=== PATIENT | female | born 1970 | race Asian ===

== ENCOUNTER 2016-08-12 13:27 | Emergency (ER) | payer MEDICAID, OTHER ==
[~2016-08-12] VITALS: Ht 172.7 cm; Wt 99.8 kg
[~2016-08-12 13:27] MED LIST: CIPROFLOXACIN500 M1 PO; COLACE100 MG PO; FERROUS SULFAT325 MG PO; KEFLEX250 MG PO; METFORMIN HCL500 MG PO; NORCO 325 MG-51 TAB PO; SIMVASTATIN20 MG PO; TYLENOL #3 300/1 TAB PO; TYLENOL325 M2 PO
[2016-08-12 13:50] VITALS: BP 144/80
--- NOTE | 2016-08-12 13:51 | NUR ---
PATIENT PRESENTS TO ED DUE TO ON OFF SMALL AMOUNT OF BLOOD IN HER URINE STARTED THURSDAY,DENIES N/V/D; SKIN IS PINK/WARM/DRY; AAOX4 WITH EVEN AND STEADY GAIT; LUNGS CLEAR BL; HR EVEN AND REGULAR; PT DENIES ANY FEVER, CP, SOB, OR COUGH AT THIS TIME; PATIENT STATES PAIN OF 0/10 AT THIS TIME; PATIENT POSITIONED FOR COMFORT; HOB ELEVATED; BEDRAILS UP X2; BED DOWN. ER MD MADE AWARE OF PT STATUS.
--- NOTE | 2016-08-12 13:53 | NUR ---
PT TO BED 2 AT TIME.
--- NOTE | 2016-08-12 14:03 | NUR ---
DR. CARLISLE AT BEDSIDE AND AWARE OF THE RESULT OF URINE DIPSTICK AND PREG.
[2016-08-12 14:25] VITALS: BP 144/80
--- NOTE | 2016-08-12 14:26 | NUR ---
Patient discharged with v/s stable. Written and verbal after care instructions given and explained. Patient alert, oriented and verbalized understanding of instructions. Ambulatory with steady gait. All questions addressed prior to discharge. ID band removed. Patient advised to follow up with PMD. Rx of CEPHALEXIN given. Patient educated on indication of medication including possible reaction and side effects. Opportunity to ask questions provided and answered.ENCOURAGED FLUID INTAKE AND PT AGREED WITH IT.
== END 2016-08-12 14:26 | disposition home or self-care (01) ==
LOC: MED 13:27
DX: N39.0 Urinary tract infection, site not specified (principal); E11.9 Type 2 diabetes mellitus without complications; I10 Essential (primary) hypertension; E78.5 Hyperlipidemia, unspecified; Z90.710 Acquired absence of both cervix and uterus; Z79.899 Other long term (current) drug therapy

== ENCOUNTER 2020-08-07 22:47 | Emergency (ER) | payer OTHER ==
[~2020-08-07] VITALS: Ht 172.7 cm; Wt 99.8 kg
[~2020-08-07 22:47] MED LIST changes: +CIPR500T9 PO; -CIPROFLOXACIN500 M1 PO; -COLACE100 MG PO; +DOCU-300 PO; -FERROUS SULFAT325 MG PO; +HYDR-5122 PO; -KEFLEX250 MG PO; +METF-988 PO; -METFORMIN HCL500 MG PO; -NORCO 325 MG-51 TAB PO; +SIMV-31 PO; -SIMVASTATIN20 MG PO; -TYLENOL #3 300/1 TAB PO; -TYLENOL325 M2 PO
[2020-08-07 22:53] VITALS: BP 160/100
[2020-08-07] MEDS ORDERED: MORPHINE SULFATE 4 MG/ML SYR IM ONE (23:15)
[2020-08-07] MEDS ORDERED: SILVER SULFADIAZINE 1% 50 GM JAR TP ONE (23:15)
[2020-08-08] MEDS ORDERED: SILV-55 TP (00:05)
[2020-08-08] MEDS ORDERED: ACET-8386 PO (00:05)
[2020-08-08] MEDS ORDERED: IBUP-2213 PO (00:05)
[2020-08-08 01:05] VITALS: BP 144/98
== END 2020-08-08 01:05 | disposition home or self-care (01) ==
LOC: MED 22:47
DX: T24.201A Burn of second degree of unspecified site of right lower limb, except ankle and foot, initial encounter (principal); T24.202A Burn of second degree of unspecified site of left lower limb, except ankle and foot, initial encounter; T31.0 Burns involving less than 10% of body surface; E11.9 Type 2 diabetes mellitus without complications; Z79.84 Long term (current) use of oral hypoglycemic drugs; Z79.899 Other long term (current) drug therapy; Z90.710 Acquired absence of both cervix and uterus; X08.8XXA Exposure to other specified smoke, fire and flames, initial encounter; Y93.89 Activity, other specified; Y92.89 Other specified places as the place of occurrence of the external cause; Y99.8 Other external cause status
CPT/HCPCS: 96372; 99283; J2270; 90715

== ENCOUNTER 2020-10-11 22:04 | Inpatient (IN) | payer OTHER, SELFPAY ==
[~2020-10-11] VITALS: Ht 170.2 cm; Wt 99.8 kg
[~2020-10-11 22:04] MED LIST changes: +ACET-8386 PO; +IBUP-2213 PO; +SILV-55 TP
[2020-10-11 22:10] VITALS: BP 141/83
--- NOTE | 2020-10-11 22:17 | NUR ---
PT AMBULATED TO BED 09.
--- NOTE | 2020-10-11 22:21 | NUR ---
50/BIB SELF C/O VAGINAL BLEEDING SINCE YESTERDAY. PT SAID IT HAPPENED ABOUT 3 TIMES ALREADY. PT DENIES ANY PAIN, N/V/D. URINATION IS NORMAL. PMH: HTN, DM NKA
--- NOTE | 2020-10-11 23:17 | NUR ---
DR. BUTLER AT BEDSIDE EXAMINING PATIENT
[2020-10-11] MEDS ORDERED: ACETAMINOPHEN EXTRA STRENGTH 500 MG TAB ONE (23:45)
--- NOTE | 2020-10-11 23:50 | NUR ---
observed pt increased HR to 150s. Dr. Hartman made aware. EKG immediately initiated. IV site started. Observed increase in oral temperate from triage to now at 104.2. pt given 1g tylenol. pt positioned for comfort in high fowlers position. bed lowest and locked. rails x 2. connected on panel monitor.
[2020-10-11] MEDS ORDERED: PIPERACILLIN/TAZOBACTAM 3.375 GM in DEXTROSE 5% 50 ML IV ONE (23:55)
[2020-10-11] MEDS ORDERED: NACL 0.9% 1,000 ML IV ONE (23:55)
[2020-10-11] MEDS ORDERED: NACL 0.9% 2,000 ML IV ONE (23:55)
[2020-10-11] MEDS ORDERED: ACETAMINOPHEN 325 MG TAB PO ONE (23:55)
[2020-10-12] VITALS (15 sets, daily range): BP systolic 96–145; BP diastolic 56–108
[2020-10-12] MEDS ORDERED: METOPROLOL 5 MG/5 ML VIAL IVP ONE (00:20)
[2020-10-12] MEDS ORDERED: PIPERACILLIN/TAZOBACTAM 3.375 GM VIAL IV ONE (00:24)
[2020-10-12 00:25] LABS: APPEARANCE,URINE HAZY (CLEAR); BILIRUBIN,URINE NEGATIVE (NEGATIVE); BLOOD, URINE 3+ (NEGATIVE); COLOR,URINE RED (YELLOW); LEUKOCYTE ESTERASE ,URINE 1+ (NEGATIVE); NITRITE, URINE POSITIVE (NEGATIVE); UGLUCOSE 2+ (NEGATIVE)
[2020-10-12 00:28] LABS: RBC,URINE TOO NUMEROUS TO COUN /HPF (0-5)
[2020-10-12 00:34] LABS: ALBUMIN 2.4 g/dL (3.4-5.0); ANION GAP 26.5 (8-16); BASOPHILS % (AUTO) 0.2 % (0.0-2.0); CARBON DIOXIDE 13.3 mmol/L (21-32); CREATININE 3.1 mg/dL (0.6-1.3); EOSINOPHILS % (AUTO) 0.2 % (0.0-4.0); HEMATOCRIT 45.8 % (36-48); LYMPHOCYTES % (AUTO) 9.8 % (20.5-51.1); MEAN CORPUSCULAR HEMOGLOBIN 28 pg (27-31); MEAN CORPUSCULAR HGB CONC 33 g/dL (33-37); MEAN CORPUSCULAR VOLUME 84.3 fL (80-94); MONOCYTES # (AUTO) 0.1 K/uL (0.8-1.0); MONOCYTES % (AUTO) 1.2 % (1.7-9.3); NEUTROPHILS # (AUTO) 9.3 K/uL (1.8-7.7); NEUTROPHILS % (AUTO) 88.6 % (42.2-75.2); PLATELET COUNT (AUTO) 70 K/uL (140-450); POTASSIUM 4.8 mmol/L (3.5-5.1); RED BLOOD CELL COUNT(AUTO) 5.43 MIL/uL (4.20-5.40); RED CELL DISTRIBUTION WIDTH 13.9 % (11.6-13.7); TOTAL BILIRUBIN 1.4 mg/dL (0.0-1.0); WHITE BLOOD COUNT (AUTO) 10.5 K/uL (4.8-10.8)
--- NOTE | 2020-10-12 00:36 | NUR ---
US AT BEDSIDE.
[2020-10-12] MEDS ORDERED: METF500T PO (00:40)
[2020-10-12 00:53] LABS: BARBITURATE, URINE NEGATIVE ng/ml (NEG <=200); BENZODIAZEPINE, URINE NEGATIVE ng/mL (NEG <=200); CANNABINOID, URINE NEGATIVE ng/mL (NEG <=50); COCAINE, URINE NEGATIVE ng/mL (NEG <=300); OPIATE, URINE NEGATIVE ng/mL (NEG <=2000); PHENCYCLIDINE SCREEN,URINE NEGATIVE ng/mL (NEG <=25)
[2020-10-12 00:53] LABS: PROTHROMBIN TIME 13.2 secs (10.8-13.4)
--- NOTE | 2020-10-12 01:12 | NUR ---
PT TAKEN TO CT VIA ANJANA. NARDA ACCOMPANYING COMMANDER POLICE RESERVES.
[2020-10-12] MEDS ORDERED: INSULIN REGULAR, HUMAN 100 UNIT in NACL 0.9% 100 ML IV ONE ×2 (01:20)
[2020-10-12] MEDS ORDERED: NACL 0.9% 2,000 ML IV ONE (01:20)
[2020-10-12] MEDS ORDERED: INSULIN REGULAR, HUMAN 100 UNIT/ML VIAL SUBQ ONE (01:20)
--- NOTE | 2020-10-12 01:35 | NUR ---
RT AT BEDSIDE, ABG COLLECTED.
--- NOTE | 2020-10-12 01:52 | NUR ---
BARTOLO COLLECTED, RESULTS WERE GIVEN TO DR. THOMAS
[2020-10-12] MEDS ORDERED: INSULIN REGULAR, HUMAN 100 UNIT/ML VIAL IVP ONE (01:55)
[2020-10-12] MEDS ORDERED: INSULIN REGULAR, HUMAN 100 UNIT in NACL 0.9% 100 ML IV SCH ×2 (01:55)
[2020-10-12] MEDS: NACL 0.9% 1,000 ML IV SCH ×5 (02:10→19:35)
[2020-10-12] MEDS ORDERED: MAG SULF 2000 MG/WATER PREMIX 50 ML IV PRN (02:10)
[2020-10-12] MEDS ORDERED: POTASSIUM CHLORIDE 10 MEQ TABER PO PRN (02:10)
[2020-10-12] MEDS ORDERED: MAGNESIUM OXIDE 400 MG TAB PO PRN (02:10)
[2020-10-12] MEDS ORDERED: DEXTROSE 50% 50 ML SYR IVP PRN (02:10)
[2020-10-12] MEDS ORDERED: KCL 20 MEQ/WATER INJ PREMIX 200 ML IV PRN (02:10)
[2020-10-12] MEDS ORDERED: ONDANSETRON 4 MG/2 ML VIAL IVP PRN ×2 (02:10→02:20)
[2020-10-12] MEDS ORDERED: HYDROcodone/APAP 5/325 MG 1 TAB TAB PO PRN (02:10)
[2020-10-12] MEDS ORDERED: INSULIN LISPRO SLIDING SCALE 100 UNITS/ML VIAL SUBQ PRN (02:10)
[2020-10-12] MEDS: BLOOD GLUCOSE MONITORING 1 DEV DEV FS SCH ×22 (02:14→23:10)
[2020-10-12] MEDS: INSULIN REGULAR, HUMAN 100 UNIT in NACL 0.9% 100 ML IV SCH ×6 (02:15→14:51)
[2020-10-12] MEDS ORDERED: NOREPINEPHRINE 4 MG in DEXTROSE 5% 250 ML IV ONE (02:25)
[2020-10-12] MEDS ORDERED: ALBUMIN HUMAN 5 % 500 ML IV SCH (02:40)
[2020-10-12] MEDS ORDERED: cefTRIAXone 1,000 MG VIAL ONE (03:15)
--- NOTE | 2020-10-12 03:27 | NUR ---
performed urinary straight catheter with 16 fr catheter via the sterile procedure. output of blood tinged urine. pt tolerated well.
--- NOTE | 2020-10-12 03:33 | NUR ---
UNABLE TO ADMINISTER LEVOPHED DRIP OF THIS MOMENT, AWAITING MD TO PUT CENTRAL LINE. CURRENT BP 90/42 HR 114. WILL CONTINUE TO MONITOR.
[2020-10-12] MEDS ORDERED: BLOOD GLUCOSE MONITORING 1 DEV DEV FS SCH (04:00)
[2020-10-12 04:05] LABS: BASOPHILS % (AUTO) 0.2 % (0.0-2.0); EOSINOPHILS % (AUTO) 0.1 % (0.0-4.0); HEMATOCRIT 39.9 % (36-48); HEMOGLOBIN 12.9 g/dL (12.0-16.0); LYMPHOCYTES % (AUTO) 6.5 % (20.5-51.1); MEAN CORPUSCULAR HEMOGLOBIN 27 pg (27-31); MEAN CORPUSCULAR HGB CONC 32 g/dL (33-37); MEAN CORPUSCULAR VOLUME 83.1 fL (80-94); MONOCYTES # (AUTO) 0.7 K/uL (0.8-1.0); MONOCYTES % (AUTO) 4.4 % (1.7-9.3); NEUTROPHILS % (AUTO) 88.8 % (42.2-75.2); PLATELET COUNT (AUTO) 49 K/uL (140-450); RED CELL DISTRIBUTION WIDTH 13.8 % (11.6-13.7); WHITE BLOOD COUNT (AUTO) 15.7 K/uL (4.8-10.8)
--- NOTE | 2020-10-12 04:16 | NUR ---
PT RESTING COMFORTABLY. HOB ELEVATED, O2 2LPM/NC IN PLACE, NO S/SX OF DISTRESS NOTED. IVF AND INSULIN DRIP INFUSING WELL. GALLO CATHETER DRAINING BLOODY URINE. PT DENIES ANY PAIN OR DISCOMFORT AT THIS TIME, NO REQUESTS MADE. PT KEPT COMFORTABLE. SAFETY MEASURES IN PLACE, SIDE RAILS RAISED, BED IN LOW POSITION, BED LOCKED, CALL LIGHT WITHIN REACH. WILL CONTINUE TO MONITOR.
[2020-10-12 04:19] LABS: ANION GAP 20.8 (8-16); CREATININE 3.3 mg/dL (0.6-1.3); POTASSIUM 3.8 mmol/L (3.5-5.1)
[2020-10-12] MEDS ORDERED: NOREPINEPHRINE 4 MG/4 ML VIAL IV ONE (05:24)
--- NOTE | 2020-10-12 06:05 | NUR ---
ASSISTED DR. BUTLER WITH CENTRAL LINE INSERTION. AWAITING XRAY CONFIRMATION. WILL CONTINUE TO MONITOR.
[2020-10-12] MEDS: DEXT 5% / NACL 0.45% 1,000 ML IV SCH ×5 (06:49→19:35)
--- NOTE | 2020-10-12 07:20 | NUR ---
Patient will be admitted to care of DR. PARRA. Admited to ICU. Will go to BED #5. Belongings list completed. Report to FELICIANO LABOY
[2020-10-12] MEDS: ALBUTEROL SULFATE/IPRATROPIU 3 ML SOL IH SCH ×4 (07:42→23:19)
[2020-10-12 08:31] LABS: ANION GAP 21.4 (8-16); CARBON DIOXIDE 17.4 mmol/L (21-32); CREATININE 3.3 mg/dL (0.6-1.3); POTASSIUM 4.8 mmol/L (3.5-5.1)
[2020-10-12] MEDS: DOCUSATE SODIUM 100 MG GELCAP PO SCH (08:36)
--- NOTE | 2020-10-12 08:36 | NUR ---
ADMINISTERED SCHEDULED MEDS PER MD ORDER. MED EDUCATION PROVIDED, PATIENT VERBALIZES UNDERSTANDING.
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
--- NOTE | 2020-10-12 08:50 | NUR ---
PATIENT HAS BEEN SCREENED AND CATEGORIZED HIGH NUTRITION RISK. PATIENT WILL BE SEEN WITHIN 1-2 DAYS OF ADMISSION. 10/12/20-10/13/[address]
--- NOTE | 2020-10-12 10:21 | NUR ---
PATIENT ASSISTED WITH A LINEN CHANGE AND CLEAN UP FROM BM. HOME CARE COORDINATOR IN PLACE. SAFETY MEASURES IN PLACE.
[2020-10-12 12:34] LABS: ANION GAP 21.4 (8-16); CARBON DIOXIDE 16.8 mmol/L (21-32); CREATININE 3.3 mg/dL (0.6-1.3); POTASSIUM 4.2 mmol/L (3.5-5.1)
--- NOTE | 2020-10-12 12:53 | NUR ---
PER DR YO (RENAL MD), TITRATE BETWEEN NS AND D5 1/2NS TO 80 ML/HR OPPOSED TO FLUID STATE PER DKA PROTOCOL.
--- NOTE | 2020-10-12 13:14 | NUR ---
BLOOD CULTURE RESULTS CALLED IN BY LAB, DR PARRA PAGED. AWAITING NEW ORDERS.
[2020-10-12] MEDS: ACETAMINOPHEN 325 MG TAB PO PRN (13:44)
--- NOTE | 2020-10-12 13:44 | NUR ---
TYLENOL PRN ADMINISTERED FOR TEMPERATURE OF 100.4 DEGREES FAHRENHEIT. MED EDUCATION PROVIDED, PATIENT VERBALIZES UNDERSTANDING.
--- NOTE | 2020-10-12 14:49 | NUR ---
DC [age] YRS OLD FEMALE PATIENT WAS ADMITTED FROM HOME WITH A DX OF DKA. PATIENT HAS A HX OF DM, MORBID OBESITY AND HTN. CXR SHOWED NO ACUTE CARDIOPULMONARY DISEASE. PELVIC US NO ADNEXAL MASSES IDENTIFIED. CT HEAD NO INTRACRANIAL HEMORRHAGE, MASS EFFECT OR HYDROCEPHALUS. CT ABD/PELVIS SHOWED SEVERE EMPHYSEMATOUS LEFT PYELONEPHRITIS. RAPID COVID TEST NEGATIVE INFLUENZA A&B NEGATIVE. BLOOD GLUCOSE ON ADMISSION 498 AG 26.5. STARTED INSULIN DRIP , IVF IV ABX ROCEPHIN. CONSULTED WITH [facility] AND [facility]. DC PLAN TO GO HOME WHEN STABLE. CM TO FOLLOW Addendum: 10/15/20 at 1404 by Denia Argueta CM DC OPERATOR RECEPTIONIST: SCHEDULED PATIENT A FOLLOW UP APPOINTMENT WITH PCP [facility] [phone]. [phone] [address]. Thursday AT 9:00 AM Addendum: 10/16/20 at 1507 by Denia Argueta CM DC OPERATOR RECEPTIONIST: RECEIVED ORDER FOR SNF FOR IV ABX, FRANCI SPOKE TO PATIENT SHE IS AGREEABLE TO GOING TO SNF, PATIENT DOES NOT HAVE A PREFERENCE. FAXED TO [facility]. RECEIVED A PHONE CALL FROM CARROLL AT [facility] THEY ARE ABLE TO ACCEPT THIS PATIENT. Addendum: 10/16/20 at 1528 by Denia Argueta CM DC OPERATOR RECEPTIONIST: [facility] [address] [place] [address] ROOM# [id number] Addendum: 10/16/20 at 1530 by Denia Argueta CM DC OPERATOR RECEPTIONIST: PER DR. MEAD PATIENT WILL NEED A PIC LINE BEFORE DISCHARGING TO SNF. PLACED TRANSPORTATION ON WILL CALL WITH [facility] [phone]
[2020-10-12 18:01] LABS: POTASSIUM 4.7 mmol/L (3.5-5.1)
[2020-10-12 18:03] LABS: ANION GAP 19.5 (8-16); CARBON DIOXIDE 15.2 mmol/L (21-32)
[2020-10-12 18:04] LABS: CREATININE 3.1 mg/dL (0.6-1.3)
--- NOTE | 2020-10-12 19:31 | NUR ---
ENDORSED PATIENT TO BREAKER OFF NURSE FOR CONTINUITY OF CARE. PATIENT STABLE AT THIS TIME.
--- NOTE | 2020-10-12 19:47 | NUR ---
DUONEB TREATMENT NOT GIVEN DUE TO HIGH HEART RATE
--- NOTE | 2020-10-12 20:00 | NUR ---
PATIENT WAS ACCEPTED AND ASSESS DONE COLOR FAIR SKIM WARM AND DRY NOTICE PATIENT HAVING HI HEART RATE , NASQAL CANNULA AND AN INSULIN DRIP WITH BLOOD GLUCOSE Q 1 HR COUGHING ALOT CAUSING EYES TO BE RED AND WATERY,,HAS THREE IV SITE ,GALLO INTACT WITH HEMATURIA ABDOME GREATLY DISTENDED , SOFT ,PATIENT IS SELF TURN LIKE LAYING ON THE RIGHT SIDE , AMRIK PAIN WILL BECOME LABOR BREATHING WHEN TURNING SIDE TO SIDE WHEN BEING CLEAN HAS FEW LOOSE DARK GREEN STOOL HAS NO CONTROL BLOOD GLUCOSE Q 1R RANGE FROM 140-250 NO CHANGE ON THE INSULIN DRIPE MAY NEED TO STOP DRIP ,PATIENT IS ALSO ON AN DIET, THE UROLOGIST CAME TO SEE THE PATIENT AND EXPLAIN AN PROCEDURE WILL DO IN THE AM SOME TYPE OF STNT PLACEMENT RELATE TO THE KIDNEY ALSOMAY FIND OUT WHY THE PATIENT HAS HEMATURIA WILL SIGN CONSENT AND NPO AFTER MN,STABLE THE PATIENT RESTLESS WITH LABOR BREATHING ,PATIENT DID ASK FOR HER BREATHING PUFF,.STABLE
[2020-10-12] MEDS ORDERED: MEROPENEM 500 MG VIAL IV ONE (21:56)
--- NOTE | 2020-10-12 22:00 | NUR ---
PATIENT WAS GIVEN PHENERGAN/CODIENE 10MG PO FOR THE COUGH ,CALL THE RT AFKF CELESTE ANY TREATMENT ,PATIENT WAS GIVEN BREATHING TREATMENT ,THE HEART RATER WAS HI, BUT THE PATIENT NEED THE TREATMENT,STABLE USING THE BEDPAN AT INTERVAL,PASSING VERY SMALLLIQUID STOOL ,WILL CONTINUED WITH PLAN OF CARE.
[2020-10-12] MEDS: MEROPENEM 500 MG in NACL 0.9% 50 ML IV SCH (22:38)
[2020-10-12] MEDS: PROMETH/CODEINE 6.25-10MG/5ML 5 ML UDC PO PRN ×2 (22:53→23:13)
[2020-10-13] VITALS (18 sets, daily range): BP systolic 92–153; BP diastolic 48–89
[2020-10-13] MEDS: BLOOD GLUCOSE MONITORING 1 DEV DEV FS SCH ×13 (01:00→22:00)
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
--- NOTE | 2020-10-13 06:00 | NUR ---
NOTICE THE PATIENT BED WAS VERY WET FROM THE URINE MAY HAD BEEN 400 ML , SKIN CARE WAS GIVEN LINEN AND GOWN WERE CHANGE . STABLE PATIENT REMAIN NPO AFTER MN ORDER PATIENT TRIED TO REST DUE TOTHE BREATHING WAS UNABLE TO GET COMFORTABLE WILL CONTINUED WITH PLANA OF CARE,STABLE
[2020-10-13 06:18] LABS: CHOL/HDL RATIO 14.9 (1-4.5)
[2020-10-13 06:29] LABS: ALBUMIN 2.1 g/dL (3.4-5.0); ANION GAP 17.2 (8-16); CARBON DIOXIDE 18.9 mmol/L (21-32); CREATININE 2.8 mg/dL (0.6-1.3); POTASSIUM 4.1 mmol/L (3.5-5.1); TOTAL BILIRUBIN 0.5 mg/dL (0.0-1.0)
[2020-10-13 06:53] LABS: HEMATOCRIT 38.2 % (36-48); HEMOGLOBIN 12.6 g/dL (12.0-16.0); MEAN CORPUSCULAR HEMOGLOBIN 27 pg (27-31); MEAN CORPUSCULAR HGB CONC 33 g/dL (33-37); MEAN CORPUSCULAR VOLUME 82.9 fL (80-94); PLATELET COUNT (AUTO) 20 K/uL (140-450); RED BLOOD CELL COUNT(AUTO) 4.61 MIL/uL (4.20-5.40); RED CELL DISTRIBUTION WIDTH 13.8 % (11.6-13.7); WHITE BLOOD COUNT (AUTO) 8.4 K/uL (4.8-10.8)
--- NOTE | 2020-10-13 07:15 | NUR ---
RECEIVED REPORT FROM UNIVERSITY ARCHIVIST NURSE. PATIENT SUPINE IN BED WITH OR AND UNIVERSITY ARCHIVIST RN AT BEDSIDE, PREPARING FOR OR PROCEDURE. PATIENT ALERT AND AWAKE, ABLE TO MAKE NEEDS KNOWS, NO SIGNS OF ACUTE DISTRESS NOTED. NC @ 2 L, GALLO CATHETER IN PLACE, RIJ, LAC 18G, R HAND 20G. INFUSING INSULIN @ 0.05 UNITS/KG/HR, D5 1/2NS @ 80 ML/HR. PATIENT TAKEN TO OR BY OR STAFF.
[2020-10-13] MEDS ORDERED: fentaNYL citrate 0.05 MG/ML VIAL ONE (07:35)
[2020-10-13] MEDS ORDERED: MIDAZOLAM 2 MG/2 ML VIAL ONE (07:35)
[2020-10-13] MEDS ORDERED: PROPOFOL 200 MG/20 ML VIAL IV ONE (07:35)
[2020-10-13] MEDS ORDERED: SEVOFLURANE 250 ML BTL INH ONE (07:35)
[2020-10-13] MEDS: NACL 0.9% 1,000 ML IV SCH (08:05)
[2020-10-13] MEDS: DEXT 5% / NACL 0.45% 1,000 ML IV SCH (08:05)
[2020-10-13 08:06] LABS: EOSINOPHILS % (MANUAL) 2 % (0-4); LYMPHOCYTES % (MANUAL) 9 % (20-46); METAMYELOCYTES % 1 % (0-0); MONOCYTES % (MANUAL) 6 % (5-12)
--- NOTE | 2020-10-13 08:12 | NUR ---
PT MISSED MORNING BREATHING TX DUE TO GOING TO OR FIRST THING IN AM. WILL ATTEMPT TO GIVE PT TX AFTER PROCEDURE IN OR.
[2020-10-13] MEDS ORDERED: FLUCONAZOLE 200 MG/NS PREMIX 100 ML IV SCH (08:30)
--- NOTE | 2020-10-13 08:50 | NUR ---
PATIENT RETURNING FROM OR PROCEDURE, BROUGHT IN BED BY OR STAFF/RN. PATIENT DROWSY FROM SEDATION, AWAKES TO SHAKING, WITH SIMPLE MASK SATURATING IN THE 80S. PER LINING CEMENTER, NEW GALLO CATHETER PLACED IN OR. PER ANESTHESIA, FENTANYL ADMINISTERED DURING PROCEDURE. DR GOLDEN AT BEDSIDE, ASSESSING PATIENT.
[2020-10-13] MEDS: DOCUSATE SODIUM 100 MG GELCAP PO SCH (09:00)
[2020-10-13] MEDS: MEROPENEM 500 MG in NACL 0.9% 50 ML IV SCH ×2 (09:00→23:03)
--- NOTE | 2020-10-13 09:17 | NUR ---
RT AND DR GOLDEN AT BEDSIDE OBTAINING BLOOD GAS AND ASSESSING PATIENT.
--- NOTE | 2020-10-13 09:29 | NUR ---
10/13/20 RD INITIAL ASSESSMENT COMPLETED PLEASE REFER TO NUTRITION ASSESSMENT UNDER CARE ACTIVITY FOR ESTIMATED NUTRITIONAL NEEDS. 1. WHEN MEDICALLY APPROPRIATE RECOMMEND CCHO 60 GM, NA 2 GM DIET 2. RECOMMEND DIET EDUCATION FOR DM DIET 3. RD TO FOLLOW-UP 2-3 DAYS, HIGH RISK CAROL ANN MCCOLLUM RD
--- NOTE | 2020-10-13 09:32 | NUR ---
RT AT BEDSIDE PLACING PATIENT ON BIPAP. RATE 10, FIO2 45%, SPO2 97%. LABORED BREATHING WITH ACCESSORY MUSCLE USE.
[2020-10-13] MEDS: ALBUTEROL SULFATE/IPRATROPIU 3 ML SOL IH SCH ×3 (09:42→20:37)
[2020-10-13] MEDS: INSULIN REGULAR, HUMAN 100 UNIT in NACL 0.9% 100 ML IV SCH ×2 (12:17)
--- NOTE | 2020-10-13 12:49 | NUR ---
RT AT BEDSIDE, REMOVING PATIENT OFF BIPAP. PATIENT PLACED ON 2L NC, SPO2 97%.
--- NOTE | 2020-10-13 12:55 | NUR ---
pt pulled off bipap, was third time she had removed the mask, pt placed on nasal cannula-no distress noted
[2020-10-13] MEDS: ACETAMINOPHEN 325 MG TAB PO PRN (13:13)
--- NOTE | 2020-10-13 13:14 | NUR ---
PRN ACETAMINOPHEN ADMINISTERED FOR TEMPERATURE OF 100.6 DEGREES FAHRENHEIT. WILL MONITOR CLOSELY.
[2020-10-13] MEDS ORDERED: FUROSEMIDE 40 MG/4 ML VIAL IVP SCH (14:00)
--- NOTE | 2020-10-13 14:41 | NUR ---
ADMINISTERED ONE TIME DOSE OF FUROSEMIDE PER MD ORDER. MED EDUCATION PROVIDED, REINFORCEMENT NEEDED. LATEX CASTER IN PLACE, SAFETY MEASURES IN PLACE, CALL LIGHT WITHIN REACH.
--- NOTE | 2020-10-13 19:25 | NUR ---
ENDORSED PATIENT TO SWITCH HOUSE OPERATOR NURSE FOR CONTINUITY OF CARE. PATIENT STABLE AT THIS TIME.
--- NOTE | 2020-10-13 20:00 | NUR ---
PATIENT WAS ACCEPTED AND ASSESS DONE NOTICE PATIENT WAS ZULUAGA LETHARGIA AND CONFUSED ON NASAL CANNULA 2 LITER CHEST ESSENTIAL CLEAR SOME LABOR BREATHING OCCASIONAL WOULD REFUSED TO USED THE BIPAP HAS AN CLEAR LIQUID DIET WANT WATER ONLY NO FEVER WAA NOTICE ABDOMEN IS DISTENDED BUT SOFT PATIENT IS NOT MOVING MUCH TODAY STAY ON THE RIGHT SIDE ONLY HAS HER LEG HALF OUT OF THE BED PATIENT IS TO THREE TEST FOR ANION GAP THIS WILL DETERMING IF TO STOP THE INSULIN DRIP BLOOD GLUCOSE TAKEN Q TWO HR, RESULT 178-180 ANF STABLE PATIENT LAB LOW PLAT WILL RECEIVED PLAT TRANSFUSION TO NITE , STABLE PATIENT IS SLEEPING A LOT INTERVAL NOTICE EUES ARE RED AND WATERY , WILL CONTINUED WITH PLAN OF CARE
[2020-10-13 20:31] LABS: ANION GAP 17.3 (8-16); CARBON DIOXIDE 21.3 mmol/L (21-32); CREATININE 2.5 mg/dL (0.6-1.3); POTASSIUM 4.6 mmol/L (3.5-5.1)
[2020-10-14] VITALS (17 sets, daily range): BP systolic 89–148; BP diastolic 42–72
--- NOTE | 2020-10-14 | NUR ---
PATIENT CONDITION UN CHANGED SLEEPING AT LONG INTERVALS HAS THRE IV SITE SITE CLEAN WITH DRSG GHANGE RIGHT IJ WAS DONE L/C SIT DRSG CHANGE RIGHT HAND NO,20G HAD CAME OUT WILL NOT START ,HAS TWO OTHER SITE, STABLE
[2020-10-14 00:36] LABS: ANION GAP 14.8 (8-16); CARBON DIOXIDE 22.5 mmol/L (21-32); CREATININE 2.5 mg/dL (0.6-1.3); POTASSIUM 4.3 mmol/L (3.5-5.1)
[2020-10-14] MEDS: ALBUTEROL SULFATE/IPRATROPIU 3 ML SOL IH SCH ×4 (01:11→20:43)
--- NOTE | 2020-10-14 04:00 | NUR ---
PATIENT WAS GIVEN AM BATHTURN ON TO BACK NOTICE URINE VERY DARK BLOOD START FILLING UP THE URINE WITH 29 MIN , ALSO PATIENT HAD START OMDESAT WAS PLACE ON NON REBREATHER MASK AT 100% , RESP RATE WAS SLOW AND LABOR RT WAS CALL TO ASSESS THE PATIENT , WILL BE ON BIPAP STABLE CALL DR ANNE ABOUT THE PATIENT CONDITION ORDER MANY THING SEE ORDER SHEET , STABLE ANION GAP IS COMING DOWN 14.8 MAY POSSIBLE STOP INSULIN DRIP 5 UNITS OF PLATLET WAS GIVEN ANF TOLERATE NO REACTION TO THE TRANSFUSION WILL CONTINUED WITH PLAN OF CARE STABLE
--- NOTE | 2020-10-14 05:13 | NUR ---
CALLED TO BEDSIDE AND FOUND PT ON NRB. PT AGREED TO BIPAP AND WAS PLACED ON BIPAP W/ SETTINGS THAT WERE PREV SET BIPAP WAS ON STDBY AT BEDSIDE. PT IS NOW RESTING COMFORTABLY ON BIPAP 14/5 f10 30%. PT DESAT AND STATED SHE FELT SOB W/ SOME INCR WOB PRIOR TO BIPAP
[2020-10-14 05:21] LABS: HEMATOCRIT 34.6 % (36-48); HEMOGLOBIN 11.4 g/dL (12.0-16.0); MEAN CORPUSCULAR HEMOGLOBIN 28 pg (27-31); MEAN CORPUSCULAR HGB CONC 33 g/dL (33-37); PLATELET COUNT (AUTO) 36 K/uL (140-450); RED BLOOD CELL COUNT(AUTO) 4.11 MIL/uL (4.20-5.40); RED CELL DISTRIBUTION WIDTH 14.6 % (11.6-13.7); WHITE BLOOD COUNT (AUTO) 8.5 K/uL (4.8-10.8)
[2020-10-14 05:35] LABS: ANION GAP 15.7 (8-16); CARBON DIOXIDE 20.8 mmol/L (21-32); CREATININE 2.5 mg/dL (0.6-1.3); POTASSIUM 4.5 mmol/L (3.5-5.1)
[2020-10-14 05:48] LABS: ANION GAP 14.8 (8-16); CARBON DIOXIDE 21.7 mmol/L (21-32); CREATININE 2.5 mg/dL (0.6-1.3); POTASSIUM 4.5 mmol/L (3.5-5.1); TOTAL BILIRUBIN 0.6 mg/dL (0.0-1.0)
[2020-10-14 06:56] LABS: BASOPHILS % (MANUAL) 0 % (0-2); EOSINOPHILS % (MANUAL) 1 % (0-4); LYMPHOCYTES % (MANUAL) 9 % (20-46); MONOCYTES % (MANUAL) 4 % (5-12)
[2020-10-14] MEDS: BLOOD GLUCOSE MONITORING 1 DEV DEV FS SCH ×6 (07:00→20:52)
--- NOTE | 2020-10-14 07:40 | NUR ---
RECEIVED REPORT FROM DIRECTOR OF MARKETING ANALYTICS NURSE. PATIENT SUPINE IN BED, AWAKE AND ALERT, ABLE TO MAKE NEEDS KNOWN. NON REBREATHER FIO2 30%, IPAP 14, EPAP 5, RATE 10, NO SIGNS OF ACUTE DISTRESS NOTED. GALLO CATHETER IN PLACE, DRAINING TO GRAVITY. RIJ CENTRAL LINE, L AC 18G, INFUSING INSULIN @ 0.05 UNIT/KG/HR, D5 1/2 NS @ 50 ML/HR. DISTRIBUTION ENGINEER IN PLACE, SAFETY MEASURES IN PLACE.
[2020-10-14] MEDS: DOCUSATE SODIUM 100 MG GELCAP PO SCH (08:38)
[2020-10-14] MEDS: MEROPENEM 500 MG in NACL 0.9% 50 ML IV SCH ×2 (08:39→20:12)
--- NOTE | 2020-10-14 08:51 | NUR ---
ADMINISTERED SCHEDULED MEDS PER MD ORDER. MED EDUCATION PROVIDED, PATIENT VERBALIZES UNDERSTANDING. PATIENT TOLERATED WELL WITH SIPS OF WATER. RIGGER CHIEF IN PLACE, SAFETY MEASURES IN PLACE.
--- NOTE | 2020-10-14 09:45 | NUR ---
DR QUINTANILLA ROUNDING ON PATIENT AT BEDSIDE. PER DR QUINTANILLA, STOP INSULIN DRIP IF NEXT ANION GAP IS BELOW 18.
[2020-10-14] MEDS: NACL 0.9% 1,000 ML IV SCH ×2 (09:50→19:33)
[2020-10-14] MEDS: INSULIN LANTUS 100 UNITS/ML 10 ML VIAL SUBQ SCH ×2 (10:00→12:50)
[2020-10-14 12:35] LABS: ALBUMIN 1.8 g/dL (3.4-5.0); ANION GAP 15.1 (8-16); CARBON DIOXIDE 23.3 mmol/L (21-32); CREATININE 2.5 mg/dL (0.6-1.3); POTASSIUM 4.4 mmol/L (3.5-5.1); TOTAL BILIRUBIN 0.6 mg/dL (0.0-1.0)
[2020-10-14 16:41] LABS: ALBUMIN 1.8 g/dL (3.4-5.0); ANION GAP 14.1 (8-16); CARBON DIOXIDE 23.5 mmol/L (21-32); CREATININE 2.4 mg/dL (0.6-1.3); POTASSIUM 4.6 mmol/L (3.5-5.1); TOTAL BILIRUBIN 0.7 mg/dL (0.0-1.0)
[2020-10-14] MEDS: INSULIN LISPRO SLIDING SCALE 100 UNITS/ML VIAL SUBQ PRN ×2 (16:58→20:54)
--- NOTE | 2020-10-14 18:50 | NUR ---
ENDORSED PATIENT TO TELEMETRY NURSE FOR CONTINUITY OF CARE. PATIENT STABLE AT THIS TIME.
--- NOTE | 2020-10-14 19:17 | NUR ---
RECEIVED PATIENT FROM ISU NURSE AT 1900 PATIENT STABLE VITAL SIGNS TAKEN PT AT 1L NC NO RESPIRATORY DISTRESS NOTED.KPT ALERT AND ORIENTEDX4 PT IS SITTING ON BED. CALL LIGHT WITHIN REACH. BED IN LOWER POSITION. ENDORSED PATIENT TO CHUCKING MACHINE OPERATOR NURSE.
--- NOTE | 2020-10-14 19:20 | NUR ---
RECEIVED REPORT ON PT FROM AM NURSE TOGETHER WITH ICU NURSE ON PT. TELE PT. AWAKE,ALERT AND ORIENTED X4. NO SOB UP WITH ASSISTANCE. ON O2 1 L/NC SAT 95%. NO SOB NOTED. HAS RIGHT INTERNAL JUGULAR CATHETER TRIPLE LUMEN. FLUSHED WITH NS AND CLEAR AND PATENT. [address] WAY GALLO CATHETER DRAINING TO YELLOWISH/PINKISH COLOR URINE. NO BLOOD CLOTS NOTED.NEEDS IRRIGATION Q4HRS. FREQ ROUNDS NEEDED. BED ON LOW POSITION. SIDE RAILS UP X2 AND CALL LIGHT PLACED WITHIN REACH. WILL CONTINUE TO MONITOR.
[2020-10-14 20:26] LABS: ALBUMIN 1.8 g/dL (3.4-5.0); ANION GAP 13.2 (8-16); CARBON DIOXIDE 23.3 mmol/L (21-32); CREATININE 2.4 mg/dL (0.6-1.3); POTASSIUM 4.5 mmol/L (3.5-5.1); TOTAL BILIRUBIN 0.8 mg/dL (0.0-1.0)
--- NOTE | 2020-10-14 20:45 | NUR ---
FAMILY CAME AND SEEN PT BY THE ROOM WINDOWS.
--- NOTE | 2020-10-14 20:54 | NUR ---
BLOOD SUGAR WAS CHECKED RESULT 239. INSULIN COVERAGE SUB Q GIVEN .HAD SOME JUICE. WILL CONTINUE TO MONITOR.
--- NOTE | 2020-10-14 21:15 | NUR ---
NARDA ABBOTTCOOK RESTAURANT FOLLOW UP PLATELET PHARESIS ORDERED. BLOOD BANK SAID NOT READY . WILL BE CALLING SOON BLOOD IS READY.
--- NOTE | 2020-10-14 22:00 | NUR ---
MADE ROUNDS. PT ASLEEP. NO S/S RESPIRATORY DISTRESS NOTED. O2 SAT 97%.
[2020-10-15] VITALS: BP 124/78
--- NOTE | 2020-10-15 | NUR ---
2 WAY GALLO CATHETER URINE OUTPUT STILL PINK TINGED AFTER BLADDER IRRIGATION . NO BLOT CLOTS NOTED. WILL CONTINUE TO MONITOR.
[2020-10-15] MEDS: ALBUTEROL SULFATE/IPRATROPIU 3 ML SOL IH SCH ×4 (01:00→19:34)
--- NOTE | 2020-10-15 01:21 | NUR ---
PT REFUSED MED AND STATED SHE WOULD LIKE TO SLEEP. PT DENIES SOB AT THIS TIME W/ NO DISTRESS NOTED SPO2 97% HR 90 WILL CONTINUE TO MONITOR
--- NOTE | 2020-10-15 02:30 | NUR ---
MADE ROUNDS. PT SLEEPING. NO SOB NOTED. O2 SAT 97%.
[2020-10-15 04:00] VITALS: BP 115/75
--- NOTE | 2020-10-15 04:15 | NUR ---
BLADDER SCAN DONE. FOUND 27 ML URINE ON THE LT LOWER QUADRANT. URINE OUTPUT FROM THE GALLO CATHETER TOTAL 1450 LESS 450 NS IRRIGATION IS TOTAL 1000ML URINE OUTPUT.
--- NOTE | 2020-10-15 05:45 | NUR ---
PLATELET PHERESIS STARTED AFTER VERIFIED WITH PATIENT BY ANOTHER RN , FAIR CHARGE . VITAL SIGNS TAKEN PRIOR TO START OF BLOOD. WILL CONTINUE TO MONITOR DURING TRANSFUSION
--- NOTE | 2020-10-15 06:03 | NUR ---
BLOOD TRANSFUSION STILL GOING ON. NO REACTION NOTED.
[2020-10-15] MEDS: BLOOD GLUCOSE MONITORING 1 DEV DEV FS SCH ×4 (06:08→20:25)
[2020-10-15] MEDS: INSULIN LISPRO SLIDING SCALE 100 UNITS/ML VIAL SUBQ PRN ×4 (06:10→20:36)
[2020-10-15 06:20] LABS: ALBUMIN 1.8 g/dL (3.4-5.0); ANION GAP 14.3 (8-16); CARBON DIOXIDE 23.3 mmol/L (21-32); CREATININE 2.2 mg/dL (0.6-1.3); POTASSIUM 4.6 mmol/L (3.5-5.1); TOTAL BILIRUBIN 0.7 mg/dL (0.0-1.0)
[2020-10-15 06:29] LABS: BASOPHILS % (AUTO) 0.4 % (0.0-2.0); EOSINOPHILS # (AUTO) 0.2 K/uL (0-0.4); EOSINOPHILS % (AUTO) 2.8 % (0.0-4.0); HEMATOCRIT 31.3 % (36-48); HEMOGLOBIN 10.2 g/dL (12.0-16.0); LYMPHOCYTES # (AUTO) 0.8 K/uL (2.5-16.5); LYMPHOCYTES % (AUTO) 12.8 % (20.5-51.1); MEAN CORPUSCULAR HEMOGLOBIN 28 pg (27-31); MEAN CORPUSCULAR HGB CONC 33 g/dL (33-37); MEAN CORPUSCULAR VOLUME 84.4 fL (80-94); MONOCYTES # (AUTO) 0.3 K/uL (0.8-1.0); MONOCYTES % (AUTO) 5.4 % (1.7-9.3); NEUTROPHILS # (AUTO) 4.8 K/uL (1.8-7.7); NEUTROPHILS % (AUTO) 78.6 % (42.2-75.2); PLATELET COUNT (AUTO) 46 K/uL (140-450); RED BLOOD CELL COUNT(AUTO) 3.71 MIL/uL (4.20-5.40); RED CELL DISTRIBUTION WIDTH 14.3 % (11.6-13.7); WHITE BLOOD COUNT (AUTO) 6.2 K/uL (4.8-10.8)
--- NOTE | 2020-10-15 07:15 | NUR ---
ENDORSED PT IN STABLE CONDITION TO AM NURSE.
--- NOTE | 2020-10-15 07:20 | NUR ---
REC'D REPORT FROM ONLINE COMMUNICATIONS MANAGER NURSE ,PT A/OX4, 1L NC, R. IJ TRIPLE LUMEN INFUSING PLASMA. PATENT. CRACKLES AUSCULTATED ON BENITO. LUNGS. BOWEL SOUNDS PRESENT. NO EDEMA NOTED ON BENITO. LOWER EXTREMITIES. PT HAS [address] FOR BLADDER IRRIGATION Q4HR WITH 150ML OF STERILE WATER. URINE ORANGE, CLEAR. PT CAN MAKE NEEDS KNOW. ON TELEMONITOR. COMMODE AT BEDSIDE. ALL SAFETY MEASURES IN PLACE. WILL CONTINUE TO MONITOR.
[2020-10-15 08:00] VITALS: BP 108/61
--- NOTE | 2020-10-15 08:28 | NUR ---
REMOVED 450 ML URINE FROM GALLO BAG, IRRIGATED BLADDER WITH APPROXIMATELY 150ML STERILE WATER. URINE RAN CLEAR WITHOUT EVIDENT BLOOD CLOTS, PROCEDURE EXPLAINED TO PT WHO VERBALIZED UNDERSTANDING. WILL CONTINUE TO MONITOR PT.
[2020-10-15] MEDS: DOCUSATE SODIUM 100 MG GELCAP PO SCH (09:45)
[2020-10-15] MEDS: INSULIN LANTUS 100 UNITS/ML 10 ML VIAL SUBQ SCH (09:46)
[2020-10-15] MEDS: MEROPENEM 500 MG in NACL 0.9% 50 ML IV SCH ×2 (09:47→20:26)
--- NOTE | 2020-10-15 09:50 | NUR ---
ADMINISTERED MEDICATIONS PER MD ORDER, MOA AND SIDE EFFECTS DISCUSSED WITH PT WHO VERBALIZED UNDERSTANDING. WILL CONTINUE TO MONITOR PT
--- NOTE | 2020-10-15 11:39 | NUR ---
DR. YO AT BEDSIDE. PT RESTING, DENIES ANY PAIN AT THIS TIME.
[2020-10-15 12:00] VITALS: BP 118/73
--- NOTE | 2020-10-15 12:45 | NUR ---
IRRIGATED BLADDER WITH APPROXIMATELY 150ML STERILE WATER. URINE RAN CLEAR WITHOUT EVIDENT BLOOD CLOTS, PROCEDURE EXPLAINED TO PT WHO VERBALIZED UNDERSTANDING. WILL CONTINUE TO MONITOR PT.
--- NOTE | 2020-10-15 13:46 | NUR ---
BLADDER SCAN PERFORMED, 0ML L.L. QUADRANT PER BLADDER SCAN SCREEN. PT TOLERATED PROCEDURE WELL
--- NOTE | 2020-10-15 15:13 | NUR ---
PT STABLE, NO SIGN OF DISTRESS. DENIES PAIN AT THIS TIME. WILL CONTINUE TO MONITOR
[2020-10-15 16:00] VITALS: BP 117/72
--- NOTE | 2020-10-15 16:13 | NUR ---
PT CURRENTLY ON NASAL CANNULA, TXS Q6, BIPAP AT BEDSIDE IF NEEDED, PT TOLERATING NASAL CANNULA AT THIS TIME, AND NO DISTRESS NOTED.
--- NOTE | 2020-10-15 16:35 | NUR ---
IRRIGATED BLADDER WITH APPROXIMATELY 150ML OF STERILE WATER. DISCUSSED WITH PT PROCEDURE, PT VERBALIZED UNDERSTANDING. NO VISIBLE BLOOD CLOTS SEEN, URINE YELLOW, CLEAR. WILL CONTINUE TO MONITOR. ALL SAFETY MEASURES IN PLACE
--- NOTE | 2020-10-15 17:30 | NUR ---
ADMINISTERED INSULIN PER SLIDING SCALE, MOA AND SIDE EFFECTS DISCUSSED WITH PT. PT TOLERATED MEDICATION ADMINISTRATION WELL. WILL CONTINUE TO MONITOR.
--- NOTE | 2020-10-15 19:15 | NUR ---
ENDORSED PT FOR CONTINUITY OF CARE, PT STABLE. NO SIGN OF DISTRESS.
--- NOTE | 2020-10-15 19:16 | NUR ---
RECEIVED BEDSIDE REPORT FROM DAY RN. PT IS RESTING COMFORTABLY IN BED APPEARS TO BE ASLEEP. RESPIRATIONS ARE EQUAL AND UNLABORED ON 1L NC, R. IJ TRIPLE LUMEN SL AND LAC 20G SL. CRACKLES AUSCULTATED ON BENITO. BOWEL SOUNDS PRESENT. NO EDEMA NOTED ON BENITO LOWER EXTREMITIES. PT HAS [address] FOR BLADDER IRRIGATION Q4HR WITH 150ML OF STERILE WATER. URINE ORANGE, CLEAR. ON CONTACT FOR ESBL & E.COLI IN BOTH URINE/BLOOD. POC DISCUSSED WITH PT. ALL SAFETY MEASURES IN PLACE. WILL CONTINUE TO MONITOR.
[2020-10-15 20:00] VITALS: BP 123/84
--- NOTE | 2020-10-15 20:26 | NUR ---
VITAL SIGNS ARE WITHIN NORMAL LIMITS. BLOOD SUGAR 245 ADMIN INSULIN PER SLIDING SCALE. ANNIE IV ABX NOW INFUSING PER ORDERS. MED EDUCATION GIVEN. PT IS LETHARGIC BUT AROUSABLE TO NAME. GALLO IRRIGATED WITH 150CC OF STERILE WATER PER ORDERS. ALL NEEDS MET. CALL LIGHT IS WITHIN REACH.
--- NOTE | 2020-10-15 22:08 | NUR ---
MADE ROUNDS. PT OBSERVED IN BED APPEARS TO BE ASLEEP. RESPIRATIONS EQUAL AND UNLABORED ON 1L NC. CALL LIGHT IS WITHIN REACH. WILL CONTINUE TO MONITOR.
--- NOTE | 2020-10-15 22:38 | NUR ---
2220 PATIENT DOES NOT WANT TO WEAR BIPAP AT THIS TIME.WILL CALL IF FEELS SHORT OF BREATH AND WILL ALSO CALL IF SHE WANTS HHNTX
[2020-10-16] VITALS: BP 116/64
--- NOTE | 2020-10-16 00:22 | NUR ---
VITAL SIGNS ARE WITHIN NORMAL LIMITS. PT OBSERVED IN BED APPEARS TO BE ASLEEP. CHEST RISE AND FALL. IRRIGATED GALLO WITH 100 CC. CALL LIGHT IS WITHIN REACH. WILL CONTINUE TO MONITOR.
[2020-10-16] MEDS: ALBUTEROL SULFATE/IPRATROPIU 3 ML SOL IH SCH ×4 (01:00→14:29)
--- NOTE | 2020-10-16 02:03 | NUR ---
ROUNDS MADE. PT APPEARS TO BE ASLEEP. CHEST RISE AND FALL NOTED. WILL CONTINUE TO MONITOR.
[2020-10-16 04:00] VITALS: BP 127/77
--- NOTE | 2020-10-16 04:30 | NUR ---
VITAL SIGNS ARE WITHIN NORMAL LIMITS. BLADDER SCAN REVEAL 35CC OF URINE. IRRIGATED BLADDER WITH APPROXIMATELY 150ML OF STERILE WATER. DISCUSSED WITH PT PROCEDURE, PT VERBALIZED UNDERSTANDING. URINE YELLOW, CLEAR. PT TOLERATED WELL. WILL CONTINUE TO MONITOR
[2020-10-16 05:45] LABS: BASOPHILS % (AUTO) 0.2 % (0.0-2.0); EOSINOPHILS # (AUTO) 0.1 K/uL (0-0.4); EOSINOPHILS % (AUTO) 2.2 % (0.0-4.0); HEMATOCRIT 30.4 % (36-48); LYMPHOCYTES # (AUTO) 0.7 K/uL (2.5-16.5); LYMPHOCYTES % (AUTO) 11.1 % (20.5-51.1); MEAN CORPUSCULAR HEMOGLOBIN 27 pg (27-31); MEAN CORPUSCULAR HGB CONC 33 g/dL (33-37); MEAN CORPUSCULAR VOLUME 82.7 fL (80-94); MONOCYTES # (AUTO) 0.4 K/uL (0.8-1.0); MONOCYTES % (AUTO) 6.5 % (1.7-9.3); NEUTROPHILS # (AUTO) 4.7 K/uL (1.8-7.7); PLATELET COUNT (AUTO) 63 K/uL (140-450); RED BLOOD CELL COUNT(AUTO) 3.67 MIL/uL (4.20-5.40); WHITE BLOOD COUNT (AUTO) 5.9 K/uL (4.8-10.8)
[2020-10-16 05:54] LABS: ALBUMIN 1.9 g/dL (3.4-5.0); CARBON DIOXIDE 25.4 mmol/L (21-32); CREATININE 1.8 mg/dL (0.6-1.3); POTASSIUM 4.4 mmol/L (3.5-5.1); TOTAL BILIRUBIN 0.7 mg/dL (0.0-1.0)
[2020-10-16] MEDS: BLOOD GLUCOSE MONITORING 1 DEV DEV FS SCH ×3 (06:20→16:26)
[2020-10-16] MEDS: INSULIN LISPRO SLIDING SCALE 100 UNITS/ML VIAL SUBQ PRN ×3 (06:22→16:30)
--- NOTE | 2020-10-16 07:21 | NUR ---
GAVE BEDSIDE REPORT TO DAY RN. PT ENDORSED IN STABLE CONDITION.
--- NOTE | 2020-10-16 07:23 | NUR ---
RECEIVED REPORT FROM NIGHT NURSE PT IS SLEEPING ON 1 LPM OXYGEN VIA NC, SKIN INTACT, WITH GALLO CATHETER AND BLADDER IRRIGATION Q4H. IV INTACT ON LEFT AC AND RIGHT IJ TRIPPLE LUMEN, BLADDER SCAN Q SHIFT, ON STRICT INPUT AND OUTPUT, URINE POSITIVE FOR PROTEINS AND KETONES, HEAT CT AND PELVIS US NEGATIVE. S/P LEFT URETER STENT ON 10/13/20. SAFETY MEASURES IN PLACE AND CALL LIGHT WITHIN REACH. WILL CONTINUE TO MONITOR.
[2020-10-16 08:00] VITALS: BP 118/54
[2020-10-16] MEDS: DOCUSATE SODIUM 100 MG GELCAP PO SCH (08:38)
[2020-10-16] MEDS: MEROPENEM 500 MG in NACL 0.9% 50 ML IV SCH (08:38)
--- NOTE | 2020-10-16 08:40 | NUR ---
MEDICATION DUE GIVEN CHECK VITAL SIGNS PRIOR TO MEDICATION BP 118/54 SD 81 AND BLOOD SUGAR 190 MG/DL INSULIN LANTHUS GIVEN 10 UNITS. AND IV ANTIBIOTIC INFUSING WELL. ROAD OILING TRUCK DRIVER ORDER FROM DR ANNE TO DISCONTINUE CONTINOUS BLADDER IRRIGATION AND DC GALLO CATHETER AND KEEP PT MOVING AND PT.
[2020-10-16] MEDS: INSULIN LANTUS 100 UNITS/ML 10 ML VIAL SUBQ SCH (08:45)
--- NOTE | 2020-10-16 09:30 | NUR ---
GALLO CATHETER DISCONTINUED AND CBI DISCONTINUED AND REMOVED PER DR ANNE ORDER.
--- NOTE | 2020-10-16 11:10 | NUR ---
PATIENT HAVING LOW HEART RATE ON THE MONITOR, 45-48 BPM, CHECK THE PATIENT IS SLEEPING, AND PATIENT VERBALIZES SHE OK.
--- NOTE | 2020-10-16 11:36 | NUR ---
BLOOD SUGAR 207 MG/DL INSULIN COVERAGE GIVEN 4 UNITS. PT TOLERATED WELL.
[2020-10-16 12:00] VITALS: BP 121/65
--- NOTE | 2020-10-16 12:51 | NUR ---
MADE ROUNDS PT ABLE TO USE THE COMMODE AND SIT ON THE CHAIR. NO DISTRESS NOTED.
[2020-10-16] MEDS ORDERED: LANTUS SUBQ (14:18)
[2020-10-16] MEDS ORDERED: HUMSLIDE SUBQ (14:18)
[2020-10-16] MEDS ORDERED: MERO500V13 IV (14:18)
--- NOTE | 2020-10-16 14:18 | NUR ---
10/16/20 RD FOLLOW UP COMPLETED PLEASE REFER TO NUTRITION ASSESSMENT UNDER CARE ACTIVITY FOR ESTIMATED NUTRITIONAL NEEDS. 1. RECOMMENDED [facility] DIET 2. RD PROVIDED DIABETES EDUCATION HANDOUTS 3. ENCOURAGE PO INTAKE >75% 4. RD TO FOLLOW-UP 3-5 DAYS, MODERATE RISK MICHELLE DELEON, RD
--- NOTE | 2020-10-16 14:29 | NUR ---
PATIENT ON 2LPM OXYGEN VIA NC SATURATION AT 96-97%. AND BREATHING TREATMENT DONE.
[2020-10-16] MEDS ORDERED: ERTAPENEM SODIUM 1,000 MG in NACL 0.9% 50 ML IV SCH (15:00)
--- NOTE | 2020-10-16 15:20 | NUR ---
CONSENT GIVEN BY THE PATIENT FOR PICC LINE INSERTION. DR MEAD EXPLAINED THE PROCEDURE TO THE PATIENT AND VERBALIZES UNDERSTANDING.
--- NOTE | 2020-10-16 15:35 | NUR ---
SODIUM CHLORIDE 0.95 50 ML ERTAPENEM SODIUM 1000MG AT 100MLS/HR GIVEN INFUSING WELL.
[2020-10-16 16:00] VITALS: BP 131/65
--- NOTE | 2020-10-16 16:31 | NUR ---
BLOOD SUGAR 212 MG/DL INSULIN COVERAGE 4 UNITS GIVEN.
--- NOTE | 2020-10-16 18:00 | NUR ---
PICC LINE INSERTED ON THE RIGHT UPPER ARM MIDLINE BY PICC LINE NURSE EYAD AND IS READY FOR USE PER PICC LINE NURSE.
--- NOTE | 2020-10-16 18:33 | NUR ---
GAVE REPORT TO TIFFANI ON [facility]. GAVE UPDATES AND INFORMATION ABOUT THE PATIENT.
--- NOTE | 2020-10-16 18:52 | NUR ---
REMOVED RIGHT IJ TRIPPLE LUMEN PER DR MEAD ORDER.
--- NOTE | 2020-10-16 19:23 | NUR ---
ENDORSED TO NIGHT NURSE FOR CONTINUITY OF CARE. PT IS STABLE.
== END 2020-10-16 19:45 | DRG 720 ==
LOC: MED 22:04 → MTU 10-12 02:10 → MIC 10-12 06:37 → MTU 10-14 18:30
PROVIDERS: ADMIT Internal Medicine; ATTEND Internal Medicine
PROC: 02H633Z Insertion of Infusion Device into Right Atrium, Percutaneous Approach (ICD-10-PCS; 2020-10-12)
PROC: B548ZZA Ultrasonography of Superior Vena Cava, Guidance (ICD-10-PCS; 2020-10-12)
PROC: BT1DZZZ Fluoroscopy of Right Kidney, Ureter and Bladder (ICD-10-PCS; 2020-10-13)
PROC: 30233R1 Transfusion of Nonautologous Platelets into Peripheral Vein, Percutaneous Approach (ICD-10-PCS; 2020-10-13)
PROC: 5A09357 Assistance with Respiratory Ventilation, Less than 24 Consecutive Hours, Continuous Positive Airway Pressure (ICD-10-PCS; 2020-10-13)
PROC: 0T768DZ Dilation of Right Ureter with Intraluminal Device, Via Natural or Artificial Opening Endoscopic (ICD-10-PCS; principal; 2020-10-13 07:30)
PROC: 05HY33Z Insertion of Infusion Device into Upper Vein, Percutaneous Approach (ICD-10-PCS; 2020-10-16)
PROC: B54MZZA Ultrasonography of Right Upper Extremity Veins, Guidance (ICD-10-PCS; 2020-10-16)
DX: A41.51 Sepsis due to Escherichia coli [E. coli] (principal); J96.01 Acute respiratory failure with hypoxia; R65.21 Severe sepsis with septic shock; G93.41 Metabolic encephalopathy; E11.10 Type 2 diabetes mellitus with ketoacidosis without coma; N17.9 Acute kidney failure, unspecified; E87.2 Acidosis; R16.2 Hepatomegaly with splenomegaly, not elsewhere classified; E66.01 Morbid (severe) obesity due to excess calories; E87.1 Hypo-osmolality and hyponatremia; D69.6 Thrombocytopenia, unspecified; N13.6 Pyonephrosis; E11.22 Type 2 diabetes mellitus with diabetic chronic kidney disease; I12.9 Hypertensive chronic kidney disease with stage 1 through stage 4 chronic kidney disease, or unspecified chronic kidney disease; N18.9 Chronic kidney disease, unspecified; N93.8 Other specified abnormal uterine and vaginal bleeding; Z20.822 Contact with and (suspected) exposure to COVID-19; Z79.84 Long term (current) use of oral hypoglycemic drugs; Z90.710 Acquired absence of both cervix and uterus; Z68.34 Body mass index [BMI] 34.0-34.9, adult
CPT/HCPCS: 36415; 36600; 70450; 71045; 76856; 80048; 80053; 80305; 81001; 82009; 82140; 82550; 82553; 82803; 82948; 83036; 83605; 83874; 83880; 84484; 85025; 85384; 85610; 85730; 86886; 86900; 86901; 87040; 87081; 87086; 87804; 93005; 94640; 94660; 96361; 96365; 96375; 99291; 99292; C1758; C1769; C2617; G0482; J0696; J1335; J1450; J1815; J1940; J2185; J2250; J2543; J2704; J3010; J3490; J7030; J7060; P9035; P9041

== ENCOUNTER 2020-11-06 17:48 | Emergency (ER) | payer OTHER, SELFPAY ==
[~2020-11-06] VITALS: Ht 172.7 cm; Wt 104.3 kg
[~2020-11-06 17:48] MED LIST changes: -ACET-8386 PO; -CIPR500T9 PO; -DOCU-300 PO; +HUMSLIDE SUBQ; -HYDR-5122 PO; -IBUP-2213 PO; +LANTUS SUBQ; +MERO500V13 IV; -METF-988 PO; +METF500T PO; -SILV-55 TP; -SIMV-31 PO
[2020-11-06 17:55] VITALS: BP 143/103
--- NOTE | 2020-11-06 17:58 | NUR ---
PT W/C ASSISTED TO BED 9.
--- NOTE | 2020-11-06 18:09 | NUR ---
50/F presents to ED with c/o bilateral feet pain. Patient states last she ate chicken with soy sauce and states ever since has had 10/10 feet pain. Patient states she has been unable to ambulate alone or steadily due to pain. States she has been taking Tylenol at home for pain with limited relief. Patient denies calf or upper leg pain, states pain is non radiating, feet do not appear red or swollen. Patient wheel chair assisted to room.
[2020-11-06] MEDS ORDERED: DEXAMETHASONE 10 MG/ML VIAL IM ONE (18:25)
[2020-11-06] MEDS ORDERED: KETOROLAC 30 MG/ML VIAL IM ONE (18:25)
[2020-11-06] MEDS ORDERED: INDO-323 PO (18:32)
[2020-11-06 18:47] VITALS: BP 151/93
--- NOTE | 2020-11-06 18:48 | NUR ---
Patient discharged with v/s stable. Written and verbal after care instructions given and explained. Patient alert, oriented and verbalized understanding of instructions. Ambulatory with steady gait. All questions addressed prior to discharge. ID band removed. Patient advised to follow up with PMD. Rx of Indocin given. Patient educated on indication of medication including possible reaction and side effects. Opportunity to ask questions provided and answered.
== END 2020-11-06 18:49 | disposition home or self-care (01) ==
LOC: MED 17:48
DX: M10.071 Idiopathic gout, right ankle and foot (principal); M10.072 Idiopathic gout, left ankle and foot; E11.9 Type 2 diabetes mellitus without complications; I10 Essential (primary) hypertension; Z79.4 Long term (current) use of insulin; Z79.899 Other long term (current) drug therapy
CPT/HCPCS: 96372; 99284; J1100; J1885